=== PATIENT | male | born 1965 | race American Indian/Alaskan Native ===

== ENCOUNTER 2017-12-20 07:43 | Day surgery (SDC) | payer BC ==
[2017-12-20 09:36] LABS: INR 1.2 (0.87-1.13); Partial Thromboplastin Time 32.4 Sec. (24.2-36.6)
--- NOTE | 2017-12-20 10:56 | Procedure Note ---
Date of procedure: 12/20/17 Pre-op diagnosis: lt effusion Post-op diagnosis: same Procedure: thoracentesis Findings: small volume straw colored fluid Anesthesia: local Surgeon: LUIZA RACHEL Estimated blood loss: none Pathology: list (pleural fluid) Specimen disposition: to lab Condition: stable Disposition: floor
--- NOTE | 2017-12-20 11:44 | Ultrasound Report ---
Ultrasound-guided left thoracentesis: Pleural effusion for diagnostic evaluation. Imaging of the left chest posteriorly demonstrates a relatively small volume of pleural fluid. Approach sites were marked on the patient's back. The skin was cleansed and draped. Several attempts were made before the ribs could be passed. 60 cc of straw-colored fluid was successfully removed for laboratory evaluation. No additional fluid however was retrieved. There were no apparent patient complications.
--- NOTE | 2017-12-20 12:58 | XRay Report ---
Portable chest: Left thoracentesis. There is a loculated appearing pleural effusion involving the lateral left chest. The left lung is fully expanded. The right lung is clear. Mediastinal contour is difficult to assess due to poor inspiration but is midline. Impression: No complication of left thoracentesis.
[2017-12-20 13:22] VITALS: BP 122/85
[2017-12-20 13:51] LABS: Total Cells Counted 100 /mm3
[2017-12-23 15:21] LABS: LDH,Body Fluid 252; Total Protein,Body Fluid 4.5 (15.0-45.0); Triglycerides,Body Fluid 29
== END 2017-12-20 13:35 | disposition home or self-care (01) ==
LOC: CATHLABREC 07:43 → EDSTATUS 09:00 → CATHLABREC 13:35
PROVIDERS: ATTEND Internal Medicine Critical Care Medicine
DX: J90 Pleural effusion, not elsewhere classified (principal); Z79.899 Other long term (current) drug therapy; Z79.01 Long term (current) use of anticoagulants
CPT/HCPCS: 32555; 36415; 71045; 82947; 83605; 84160; 84478; 85610; 85730; 88112; 88305; 89051